=== PATIENT | male | born 1955 | race Caucasian/White ===

== ENCOUNTER → 2018-05-20 | Outpatient (CLI) | payer OTHER ==
[~2018-05-20] MED LIST: ALLERGY RELIEF10 M3 PO; CIALIS5 MG PO
[2018-05-20 09:30] VITALS: BP 126/96
[2018-05-20 10:00] VITALS: BP 134/92
--- NOTE | 2018-05-20 14:32 | NUR ---
IN FOR THERAPEUTIC PHLEBOTOMY WITH A HGB 17.4, HCT 51.1, FERRITIN OF 537. ADMISSION HISTORY AND ASSESSMENT COMPLETED. PATIENT USE TO GIVE BLOOD PRIOR TO HAVING CANCER BUT HAS NOT GIVEN SINCE THEN. THERAPEUTIC PHLEBOTOMY DONE THROUGH [facility]. REMOVED APPROXIMATELY 3/4 UNIT OF BLOOD. COULD NOT GET THE LAST 1/4 VEIN CLOTTED OFF. TOLERATED WELL. ATE SOME CHEESE CRACKERS AND DRANK SOME WATER. POST VITAL SIGNS GOOD. OBSERVED FOR 25 MINUTES AND THEN DISMISSED IN GOOD CONDITION.
== END ==
LOC: OPONC 09:15
DX: D58.2 Other hemoglobinopathies (principal); R79.89 Other specified abnormal findings of blood chemistry
CPT/HCPCS: 95100